=== PATIENT | female | born 1945 | race American Indian/Alaskan Native ===

== ENCOUNTER 2018-04-21 08:42 | Day surgery (SDC) | payer MEDICARE ==
[2018-04-13 12:45] VITALS: BMI 25.4
[2018-04-21 09:39] LABS: BASO # 0.04 K/mm3 (0.0-2.0); BASO % 0.6 % (0.0-3.0); EOS # 0.3 (0.0-0.7); EOS % 3.7 % (1.5-5.0); GRAN # 3.53 (1.4-6.5); GRAN % 52.2 % (50.0-68.0); HEMOGLOBIN 13.5 g/dL (12.0-16.0); LYMPH # 2.4 (1.2-3.4); LYMPH % 35.5 % (22.0-35.0); MEAN CELL VOLUME 84.1 fl (80.0-105.0); MEAN CORPUSCULAR HEMOGLOBIN 27.2 pg (25.0-35.0); MEAN CORPUSCULAR HGB CONC 32.3 g/dl (31.0-37.0); MEAN PLATELET VOLUME 10.1 fl (7.0-11.0); MONO # 0.5 (0.1-0.6); RBC 4.97 10^6/uL (3.5-6.1); RED CELL DISTRIBUTION WIDTH 14.3 % (11.5-14.5); WHITE BLOOD COUNT 6.8 10^3/uL (4.5-11.0)
[2018-04-21 09:49] LABS: BLOOD UREA NITROGEN 16 mg/dL (7-21); CALCIUM 11.4 mg/dL (8.4-10.5); GFR NON-AFRICAN AMERICAN > 60
[2018-04-21 09:55] LABS: INR 1.03; PARTIAL THROMBOPLASTIN TIME 34.1 Seconds (25.1-36.5); PROTHROMBIN TIME 11.9 SECONDS (9.4-12.5)
[2018-04-21] MEDS ORDERED: Midazolam 2 MG/2 ML VIAL ONE ×2 (11:36→11:55)
[2018-04-21] MEDS ORDERED: Lidocaine 1% Inj (20ml) ONE (11:36)
[2018-04-21] MEDS ORDERED: Midazolam 2 MG/2 ML VIAL IVP ONE (12:10)
[2018-04-21] MEDS ORDERED: Oxycodone/Acetaminophen 5/325 mg Tab PO PRN (12:35)
[2018-04-21] MEDS ORDERED: Sodium Chloride 0.45% 1,000 ML IV SCH (12:45)
[2018-04-21 13:42] VITALS: RESP 18
[2018-04-21 13:54] VITALS: PULSE 72; TEMP 97.4; O2SAT 98
--- NOTE | 2018-04-21 15:12 | RAD ---
Date of service: 04/21/2018 HISTORY: rt lung bx COMPARISON: No prior. FINDINGS: LUNGS: There is a small right-sided pneumothorax. The edge of the lung is 13 mm from the chest wall PLEURA: As above CARDIOVASCULAR: No aortic atherosclerotic calcification present. Normal cardiac size. No pulmonary vascular congestion. OSSEOUS STRUCTURES: No significant abnormalities. VISUALIZED UPPER ABDOMEN: Normal. OTHER FINDINGS: None. IMPRESSION: Post biopsy pneumothorax. The edge of the lung is 13 mm from the chest wall in the lower lobe
[2018-04-21 16:55] VITALS: BP 126/72
--- NOTE | 2018-04-21 19:10 | CT ---
PROCEDURE: CT guided lower lobe lung biopsy. HISTORY: Previous left upper lobe lung CA. New 9 mm right lower lobe nodule. Positive PET. Evaluate for metastatic disease versus 2nd primary PHYSICIAN(S): Bjorn Hernandez MD. TECHNIQUE: The relative risks and indications of the procedure were explained to the patient and consent obtained. The patient was placed left decubitus position on the CT scanner and preliminary images through the mid lungs obtained. Conscious sedation and monitoring were provided throughout the procedure by a nurse. There is a 9 mm noncalcified nodule in the right lower lobe anteriorly.. A right lateral approach was selected and the area prepped and draped in the usual sterile fashion. 1% Xylocaine was used to anesthetize the skin and soft tissues. A 19 gauge guiding needle was advanced into the right lower lobe nodule. Its position was confirmed with CT. Using coaxial technique, multiple core biopsies were obtained. The postprocedure images demonstrate a tiny pneumothorax and no significant hemorrhage. The patient was asymptomatic and vital signs stable. A follow-up chest x-ray was ordered IMPRESSION: 1. CT-guided right lower lobe lung biopsy as described above.
== END 2018-04-21 16:00 | disposition home or self-care (01) ==
LOC: SDS 08:42
PROVIDERS: ATTEND Radiology Vascular & Interventional Radiology
DX: C78.01 Secondary malignant neoplasm of right lung (principal); C34.12 Malignant neoplasm of upper lobe, left bronchus or lung; I10 Essential (primary) hypertension; G40.909 Epilepsy, unspecified, not intractable, without status epilepticus; Z86.73 Personal history of transient ischemic attack (TIA), and cerebral infarction without residual deficits; Z85.42 Personal history of malignant neoplasm of other parts of uterus
CPT/HCPCS: 32405; 36415; 71045; 77012; 80048; 85025; 85610; 85730; 88305; J2250; J2405; J3010; J7030

== ENCOUNTER 2018-04-23 10:03 | Outpatient (CLI) | payer MEDICARE | END 2018-04-23 10:04 | disposition home or self-care (01) | LOC: RAD 10:03 ==